=== PATIENT | male | born 1965 ===

== ENCOUNTER → 2020-10-29 13:25 | Outpatient (ROUT) | payer OTHER, SELFPAY ==
[2020-10-29 14:09] LABS: COVID19 -Nasal RAPID Negative (Negative)
== END ==
PROVIDERS: Visit Provider Family Medicine
DX: Z20.822 Contact with and (suspected) exposure to COVID-19 (principal)
CPT/HCPCS: 87635

== ENCOUNTER → 2020-11-03 15:20 | Outpatient (ROUT) | payer OTHER, SELFPAY ==
[2020-11-03 16:08] LABS: COVID19 -Nasal RAPID Negative (Negative)
== END ==
PROVIDERS: Visit Provider Family Medicine
DX: Z20.822 Contact with and (suspected) exposure to COVID-19 (principal)
CPT/HCPCS: 87635

== ENCOUNTER → 2025-05-29 14:38 | Outpatient (ROUT) | payer OTHER, SELFPAY ==
[2025-05-29 14:55] LABS: Hemoglobin A1C% w Est Avg Glu 5.8 % (4.0-6.0)
== END ==
PROVIDERS: Visit Provider Family Medicine
DX: E11.9 Type 2 diabetes mellitus without complications (principal)
CPT/HCPCS: 83036